=== PATIENT | male | born 1985 | race Caucasian/White ===

== ENCOUNTER 2019-10-05 09:30 | Emergency (ER) | payer SELFPAY ==
[2019-10-05] MEDS ORDERED: Acetaminophen 500 MG TAB ONE (10:09)
== END 2019-10-05 10:16 | disposition home or self-care (01) ==
LOC: MADERS 09:30
DX: K04.7 Periapical abscess without sinus (principal); F17.210 Nicotine dependence, cigarettes, uncomplicated
CPT/HCPCS: 99283

== ENCOUNTER 2021-09-11 05:08 | Emergency (ER) | payer OTHER, SELFPAY ==
[2021-09-11] MEDS ORDERED: Midazolam HCl 2 mg/2 ml Vial ONE (06:28)
[2021-09-11] MEDS ORDERED: Morphine 4 MG/ML VIAL ONE (06:28)
== END 2021-09-11 07:30 | disposition home or self-care (01) ==
LOC: MADERS 05:08
DX: S43.034A Inferior dislocation of right humerus, initial encounter (principal); F17.210 Nicotine dependence, cigarettes, uncomplicated; V28.2XXA Unspecified motorcycle rider injured in noncollision transport accident in nontraffic accident, initial encounter
CPT/HCPCS: 23650; 96374; J2250; J2270

== ENCOUNTER 2022-04-06 06:32 | Emergency (ER) | payer SELFPAY ==
[2022-04-06] MEDS ORDERED: Ibuprofen 800 MG TAB ONE (07:20)
== END 2022-04-06 07:30 | disposition home or self-care (01) ==
LOC: MADERS 06:32
DX: S43.004A Unspecified dislocation of right shoulder joint, initial encounter (principal); F17.210 Nicotine dependence, cigarettes, uncomplicated; X50.0XXA Overexertion from strenuous movement or load, initial encounter
CPT/HCPCS: 23650

== ENCOUNTER 2023-01-28 06:45 | Emergency (ER) | payer SELFPAY | END 2023-01-28 07:28 | disposition home or self-care (01) | LOC: MADERS 06:45 | DX: J20.9 Acute bronchitis, unspecified (principal); F17.210 Nicotine dependence, cigarettes, uncomplicated | CPT/HCPCS: 99283 ==

== ENCOUNTER 2024-10-05 05:59 | Emergency (ER) | payer OTHER, SELFPAY ==
[2024-10-05] MEDS ORDERED: Ketorolac Tromethamine 30 MG (1 mL) VIAL ONE (06:46)
== END 2024-10-05 06:55 | disposition home or self-care (01) ==
LOC: MADERS 05:59
DX: S43.004A Unspecified dislocation of right shoulder joint, initial encounter (principal); F17.210 Nicotine dependence, cigarettes, uncomplicated; X50.1XXA Overexertion from prolonged static or awkward postures, initial encounter
CPT/HCPCS: 96372; 99283; J1885